=== PATIENT | male | born 1975 | race Caucasian/White ===

== ENCOUNTER 2024-12-07 18:59 | Inpatient (IN) | payer MEDICAID ==
[~2024-12-07] VITALS: Ht 180.3 cm; Wt 69.5 kg
[~2024-12-07 18:59] MED LIST: ACET1TAB23 PO; CEFD300C3 PO; DIVA250T4 PO; OLAN15TA3 PO; SULF1TAB48 PO
[2024-12-07 20:23] LABS: BASOPHILS # (AUTO) 0.1 K/UL (0.0-0.2); BASOPHILS % (AUTO) 0.7 % (0.0-2.0); EOSINOPHILS # (AUTO) 0.1 K/uL (0.0-0.7); EOSINOPHILS % (AUTO) 1.4 % (0.0-7.0); HEMATOCRIT 33.8 % (36.7-47.1); HEMOGLOBIN 11.6 g/dL (12.5-16.3); LYMPHOCYTES % (AUTO) 27.7 % (20.5-51.5); MEAN CORPUSCULAR HGB CONC 34 g/dL (32.5-36.3); MEAN CORPUSCULAR VOLUME 87.3 fL (73.0-96.2); MONOCYTES # (AUTO) 0.9 K/uL (0.1-1.30); NEUTROPHILS # (AUTO) 4.1 K/uL (1.8-8.9); NEUTROPHILS % (AUTO) 57.2 % (38.5-71.5); PLATELET COUNT (AUTO) 325 K/uL (152-348); RED BLOOD CELL COUNT(AUTO) 3.87 MIL/uL (4.06-5.63); RED CELL DISTRIBUTION WIDTH 14.1 % (12.1-16.2); WHITE BLOOD COUNT (AUTO) 7.2 K/uL (3.6-10.2)
[2024-12-07] MEDS ORDERED: VANCOMYCIN 1000 MG VIAL ONE (20:30)
[2024-12-07] MEDS ORDERED: VANCOMYCIN IV 200 ML ONE (20:36)
[2024-12-07] MEDS: VANCOMYCIN IV 1,000 MG in IV DEXTROSE 5% 250 ML IV ONE (20:55)
[2024-12-07 21:02] LABS: DIFFERENTIAL COMMENT 1
[2024-12-07 21:06] LABS: CREATININE 1.2 mg/dL (0.6-1.3); POTASSIUM 4.1 mmol/L (3.5-5.1)
[2024-12-07 21:12] LABS: BILIRUBIN,DIRECT 0.1 mg/dL (0.0-0.2); BILIRUBIN,TOTAL 0.5 mg/dL (0.2-1.0); CALCIUM 8.2 mg/dL (8.5-10.1)
[2024-12-07] MEDS ORDERED: ACETAMINOPHEN 325 MG TABLET PO PRN (23:15)
[2024-12-07] MEDS ORDERED: ONDANSETRON 4 MG/2 ML VIAL IV PRN (23:15)
[2024-12-07] MEDS ORDERED: HYDROCODONE/APAP 10-325 MG TABLET PO PRN (23:15)
[2024-12-07] MEDS ORDERED: REMEDY ESSENTIAL ZINC PASTE 113 GM TP PRN (23:15)
[2024-12-07] MEDS ORDERED: OLANZAPINE 5 MG TABLET PO ONE (23:30)
[2024-12-08 00:30] VITALS: BP 119/71; TEMP 98.1; O2SAT 96
[2024-12-08] MEDS: IV NS 1000 ML 1,000 ML IV PRN (03:48)
[2024-12-08] MEDS ORDERED: CEFTRIAXONE /D5W 50ML IVPB **ER PYXIS IV ONE (04:21)
[2024-12-08] MEDS: CEFTRIAXONE 1 G in IV DEXTROSE 5% 50 ML IV SCH (04:35)
[2024-12-08 05:46] VITALS: BP 119/71; TEMP 98.1; O2SAT 96
[2024-12-08 06:40] VITALS: BP 103/64; TEMP 97.6; O2SAT 97
[2024-12-08 06:57] LABS: BASOPHILS % (AUTO) 0.6 % (0.0-2.0); EOSINOPHILS # (AUTO) 0.1 K/uL (0.0-0.7); EOSINOPHILS % (AUTO) 2.8 % (0.0-7.0); HEMATOCRIT 34.8 % (36.7-47.1); LYMPHOCYTES # (AUTO) 2.1 K/uL (0.8-4.8); LYMPHOCYTES % (AUTO) 43.7 % (20.5-51.5); MEAN CORPUSCULAR HEMOGLOBIN 30.4 uug (23.8-33.4); MEAN CORPUSCULAR HGB CONC 35 g/dL (32.5-36.3); MEAN CORPUSCULAR VOLUME 87.9 fL (73.0-96.2); MONOCYTES # (AUTO) 0.8 K/uL (0.1-1.30); MONOCYTES % (AUTO) 16.5 % (0.0-11.0); NEUTROPHILS # (AUTO) 1.8 K/uL (1.8-8.9); NEUTROPHILS % (AUTO) 36.4 % (38.5-71.5); PLATELET COUNT (AUTO) 315 K/uL (152-348); RED BLOOD CELL COUNT(AUTO) 3.96 MIL/uL (4.06-5.63); RED CELL DISTRIBUTION WIDTH 13.9 % (12.1-16.2); WHITE BLOOD COUNT (AUTO) 4.9 K/uL (3.6-10.2)
[2024-12-08 07:08] LABS: CALCIUM 8.2 mg/dL (8.5-10.1); MAGNESIUM 2.4 mg/dL (1.8-2.4); PHOSPHOROUS 2.9 mg/dL (2.5-4.9); POTASSIUM 4.4 mmol/L (3.5-5.1)
[2024-12-08 07:26] LABS: DIFFERENTIAL COMMENT 1
[2024-12-08 09:36] LABS: EOSINOPHILS % (MANUAL) 3 % (0-8); LYMPHOCYTES % (MANUAL) 44 % (20-40); MONOCYTES % (MANUAL) 17 % (2-10); NEUTROPHILS % (MANUAL) 36 % (42-75); PLATELET ESTIMATE ADEQUATE
[2024-12-08] MEDS: VANCOMYCIN IV 1,250 MG in IV DEXTROSE 5% 250 ML IV SCH (10:12)
[2024-12-08 11:28] VITALS: BP 109/67; TEMP 98.6; O2SAT 98
[2024-12-08 15:48] VITALS: BP 114/66; TEMP 98.5; O2SAT 94
[2024-12-08] MEDS: OLANZAPINE 10 MG VIAL IM ONE (16:03)
[2024-12-08 16:30] LABS: *BILIRUBIN,URIN NEGATIVE (NEGATIVE); *BLOOD, URINE NEGATIVE (NEGATIVE); *CLARITY,URINE CLEAR (CLEAR); *COLOR,URINE YELLOW (YELLOW); *KETONES,URINE NEGATIVE (NEGATIVE); *PROTEIN,URINE NEGATIVE (NEGATIVE); *UROBILINOGEN,URINE 0.2 E.U./dl (NORMAL); LEUKOCYTE ESTERASE ,URINE NEGATIVE (NEGATIVE); NITRITE, URINE NEGATIVE (NEGATIVE); PH,URINE 6.5 (5.0-8.0); UGLUCOSE NEGATIVE (NEGATIVE)
[2024-12-08 17:04] LABS: *AMPHETAMINE, URINE NEGATIVE (NEGATIVE); *BARBITURATE, URINE NEGATIVE (NEGATIVE); *BENZODIAZEPINE, URINE NEGATIVE (NEGATIVE); *CANNABINOID, URINE POSITIVE (NEGATIVE); *COCCAINE, URINE NEGATIVE (NEGATIVE); *OPIATE, URINE POSITIVE (NEGATIVE); *PHENCYCLIDINE SCREEN,URINE NEGATIVE (NEGATIVE); FENTANYL, URINE NEGATIVE (NEGATIVE)
[2024-12-08 21:20] VITALS: BP 109/50; TEMP 98.4; O2SAT 99
[2024-12-09 06:11] VITALS: BP 112/68; TEMP 98; O2SAT 98
[2024-12-09 06:37] LABS: BASOPHILS % (AUTO) 0.5 % (0.0-2.0); EOSINOPHILS # (AUTO) 0.1 K/uL (0.0-0.7); EOSINOPHILS % (AUTO) 2.3 % (0.0-7.0); HEMATOCRIT 35.9 % (36.7-47.1); HEMOGLOBIN 12.3 g/dL (12.5-16.3); LYMPHOCYTES # (AUTO) 1.9 K/uL (0.8-4.8); LYMPHOCYTES % (AUTO) 32.3 % (20.5-51.5); MEAN CORPUSCULAR HGB CONC 34 g/dL (32.5-36.3); MEAN CORPUSCULAR VOLUME 87.6 fL (73.0-96.2); MONOCYTES # (AUTO) 0.9 K/uL (0.1-1.30); MONOCYTES % (AUTO) 15.4 % (0.0-11.0); NEUTROPHILS % (AUTO) 49.5 % (38.5-71.5); PLATELET COUNT (AUTO) 292 K/uL (152-348); RED CELL DISTRIBUTION WIDTH 14.1 % (12.1-16.2)
[2024-12-09 06:44] LABS: CALCIUM 8.2 mg/dL (8.5-10.1); CREATININE 0.9 mg/dL (0.6-1.3); POTASSIUM 4.3 mmol/L (3.5-5.1)
[2024-12-09 07:09] LABS: DIFFERENTIAL COMMENT 1
[2024-12-09 07:26] LABS: LYMPHOCYTES % (MANUAL) 0 % (20-40); NEUTROPHILS % (MANUAL) 0 % (42-75)
[2024-12-09] MEDS: OLANZAPINE ZYDIS 5 MG TAB.RAPDIS PO SCH (11:00)
[2024-12-09 11:44] VITALS: BP 102/67; TEMP 97.7; O2SAT 98
[2024-12-09 15:49] VITALS: BP 95/59; TEMP 97.9; O2SAT 99
[2024-12-09 20:00] VITALS: BP 115/66; TEMP 97.7; O2SAT 99
[2024-12-10 06:00] VITALS: BP 117/68; TEMP 98; O2SAT 98
[2024-12-10 12:00] VITALS: BP 90/58; TEMP 97.7; O2SAT 96
[2024-12-10 16:00] VITALS: BP 115/67; TEMP 98; O2SAT 98
[2024-12-10] MEDS: CLINDAMYCIN HCL 300 MG CAPSULE PO SCH (17:05)
[2024-12-10 20:00] VITALS: BP 109/59; TEMP 97.9; O2SAT 98
[2024-12-11] MEDS ORDERED: OLAN5TAB6 PO (09:56)
[2024-12-11] MEDS ORDERED: CLIN300C12 PO (09:56)
[2024-12-11 11:20] VITALS: BP 105/55; TEMP 97.7; O2SAT 97
[2024-12-11] MEDS: NEOMY/BACITRAC/POLYMI OINT 28.35 GM TUBE TOP SCH (12:33)
[2024-12-11 14:26] LABS: BASOPHILS # (AUTO) 0.1 K/UL (0.0-0.2); BASOPHILS % (AUTO) 1.1 % (0.0-2.0); EOSINOPHILS # (AUTO) 0.1 K/uL (0.0-0.7); HEMATOCRIT 39.1 % (36.7-47.1); HEMOGLOBIN 13.4 g/dL (12.5-16.3); LYMPHOCYTES % (AUTO) 39.4 % (20.5-51.5); MEAN CORPUSCULAR HEMOGLOBIN 30.2 uug (23.8-33.4); MEAN CORPUSCULAR HGB CONC 34 g/dL (32.5-36.3); MEAN CORPUSCULAR VOLUME 88.2 fL (73.0-96.2); MONOCYTES # (AUTO) 0.7 K/uL (0.1-1.30); MONOCYTES % (AUTO) 9.1 % (0.0-11.0); NEUTROPHILS # (AUTO) 3.7 K/uL (1.8-8.9); NEUTROPHILS % (AUTO) 48.4 % (38.5-71.5); PLATELET COUNT (AUTO) 316 K/uL (152-348); RED BLOOD CELL COUNT(AUTO) 4.43 MIL/uL (4.06-5.63); WHITE BLOOD COUNT (AUTO) 7.6 K/uL (3.6-10.2)
[2024-12-11 14:29] LABS: DIFFERENTIAL COMMENT 1
[2024-12-11 14:33] LABS: CALCIUM 8.5 mg/dL (8.5-10.1); CREATININE 0.9 mg/dL (0.6-1.3); POTASSIUM 4.6 mmol/L (3.5-5.1)
[2024-12-11 15:25] VITALS: BP 105/62; TEMP 98.4; O2SAT 98
[2024-12-11 19:25] VITALS: BP 101/66; TEMP 97.9; O2SAT 98
[2024-12-12 06:21] VITALS: BP 96/65; TEMP 97.9; O2SAT 98
[2024-12-12 08:50] VITALS: BP 111/66; TEMP 97.9; O2SAT 98
[2024-12-12 11:10] VITALS: BP 127/72; TEMP 97.3; O2SAT 99
[2024-12-12] MEDS: HYDROCODONE/APAP 5-325MG TABLET PO PRN (13:21)
[2024-12-12 15:12] VITALS: BP 119/57; TEMP 97.6; O2SAT 100
[2024-12-12 19:40] VITALS: BP 126/61; TEMP 97.8; O2SAT 96
[2024-12-13] MEDS: TEMAZEPAM 15 MG CAPSULE PO PRN (03:08)
[2024-12-13 05:38] VITALS: BP 104/62; TEMP 97.5; O2SAT 99
[2024-12-13 11:53] VITALS: BP 110/52; TEMP 97.2; O2SAT 100
== END 2024-12-13 14:00 | disposition home or self-care (01) | DRG 364 ==
LOC: ER 19:06 → MEDSURG3 22:50
PROVIDERS: ADMIT Internal Medicine; ATTEND Nurse Practitioner Acute Care
PROC: 0KB90ZZ Excision of Right Lower Arm and Wrist Muscle, Open Approach (ICD-10-PCS; principal; 2024-12-12)
DX: L03.113 Cellulitis of right upper limb (principal); E44.1 Mild protein-calorie malnutrition; E88.09 Other disorders of plasma-protein metabolism, not elsewhere classified; F22 Delusional disorders; F15.10 Other stimulant abuse, uncomplicated; L98.492 Non-pressure chronic ulcer of skin of other sites with fat layer exposed; Z88.0 Allergy status to penicillin; Z59.00 Homelessness unspecified; Z91.041 Radiographic dye allergy status; S61.5 Open wound of wrist; W54.0XXS Bitten by dog, sequela; Z91.148 Patient's other noncompliance with medication regimen for other reason; F99 Mental disorder, not otherwise specified; L02.413 Cutaneous abscess of right upper limb; F39 Unspecified mood [affective] disorder; Z53.20 Procedure and treatment not carried out because of patient's decision for unspecified reasons; F17.210 Nicotine dependence, cigarettes, uncomplicated
CPT/HCPCS: 36415; 73090; 83735; 84100; 85025; 85730; 87040; A4663; G0378; J0696; J2358; J3370; J7040; J7050